=== PATIENT | female | born 1960 | race Asian ===

== ENCOUNTER 2022-05-26 11:15 | Outpatient (RCR) | payer OTHER, MEDICAID, SELFPAY ==
--- NOTE | 2022-04-28 18:09 | PT.OIE ---
Current Diagnoses Muscle weakness (generalized) (04/28/22) Stress incontinence (female) (male) (04/28/22) Visit Care Team Role Provider Type JESUS Pompa Primary Care Provider Non-Staff Specialty: Nursing Address: [facility] [address], [place], [address] Email: Anant Melo MD Attending Provider Non-Staff Family Provider Referring Provider Specialty: RECRUITING AND SELECTION CONSULTANT Address: [facility], [address], [place], [address] Email: Physical Therapy Initial Evaluation PT-OP-A Visit Information Start: 04/24/22 19:02 Freq: Status: Active Protocol: Document 04/28/22 10:30 LRN (Rec: 04/28/22 12:43 LRN [id number]) Out-Patient Physical Therapy Visit Information Visit Information Visit Type Initial Evaluation Visit Start Time 10:30 Visit Stop Time 11:27 Total Visit Minutes 57 Visit Number 1 Evaluation Information Evaluation Date 04/28/22 Precautions Precautions 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 Osteoporosis (-3.3 in spine). PT-OP-B Current Condition Start: 04/24/22 19:02 Freq: Status: Active Protocol: Document 04/28/22 10:30 LRN (Rec: 04/28/22 12:43 LRN [id number]) Current Condition History of Current Condition Onset Date 2019 Current Complaints Urinary leakage with cough, sneeze and jerking of dog. History of Current Condition . Had 4 boys every 1.5 yrs and was carrying low. 34 -38 yrs old during . After retiring, found she was leaking while walking her dog (when he would pull). Was watching ex's on [employer], but her gyno told her she would put her in therapy when she came back from [place]. Pt just returned to the [facility] in Nov. Since she is leaking with coughing and sneezing and with dog jerk, she want to do ex's to prevent leakage when she gets older. States she can hold her urine up to 6 hrs and doesn't leak with an urge . Told she has a skin tag on the external tissues of the anal region. Prior Treatments and Tests Independently did Ut[employer] ex's on PF. Did ex's in gym in [place] for general muscles and for a specific PF. Treatment Goals Patient/Caregiver Goals Pt goals with therapy is to not leak with dog pulling or coughing or sneezing. Prior Functional Status Baseline Function- ADL's Independent Baseline Function- Mobility Independent Baseline Function- Other No leakage with coughing or sneezing. Was not walking dog at the time. Current Functional Impairments (Reported) Functional Limitations- ADL's Retired 2019 at age 58. Worked at [employer]. Walks dogs 2x/day and must change underwear each time afterwards. Dog weighs 50#. Personal Factors Other Personal Factors That May Effect . Osteoporosis (-3.3 in Therapy/Recovery spine). PT-OP-C Subjective Start: 04/24/22 19:02 Freq: Status: Active Protocol: Document 04/28/22 10:30 LRN (Rec: 04/28/22 12:43 LRN [id number]) Patient Questionnaires Pelvic Pain and Urgency/Frequency Patient Symptom Scale Pelvic Pain Score 5 PT-OP-I Pelvic Floor Start: 04/24/22 19:02 Freq: Status: Active Protocol: Document 04/28/22 10:30 LRN (Rec: 04/28/22 12:43 LRN [id number]) Pelvic Floor Assessment Urine Leakage Size Medium Leakage Cause Cough,Exercise,Sneeze Other Leakage Causes Leakage witb exercise when dog pulls. Leaks Per Day 2 Voiding Frequency every 2 hrs Nocturia 1-2 Pads Used In 24 Hours 0 Bowel Bowel Movement Frequency 1-2 [place] Stool Chart Comments 1, 3, 4 Pelvic Clock Pelvic Clock Other Gapping of posterior PF. Prolapse Prolapse Comments Prolapse on valsa maneuber. Contraction Ability Manual Muscle Testing Left 2 Manual Muscle Testing Right 2 Manual Muscle Testing Anterior 3 Manual Muscle Testing Posterior 1 Muscle Endurance (Seconds) 5 Number of Quick Contractions In 10 2 Seconds PT-OP-J Posture/Palpation/Skin Start: 04/24/22 19:02 Freq: Status: Active Protocol: Document 04/28/22 10:30 LRN (Rec: 04/28/22 12:43 LRN [id number]) Posture Evaluation Position Standing Head/C-Spine Posture Forward Head Shoulder Posture (R) Elevated Scapula Posture (L) Neutral,(R) Neutral Pelvis Posture Anteriorly Tilted,(L) PSIS Inferior Comments Posture Comments Slight anterior tilt of pelvis . PT-OP-K Range of Motion Start: 04/24/22 19:02 Freq: Status: Active Protocol: Document 04/28/22 10:30 LRN (Rec: 04/28/22 12:43 LRN [id number]) Lumbar Spine Range of Motion Lumbar Spine Active Degrees Testing Position Standing Flexion 105 Extension 20 Rotation Left 30 Rotation Right 35 Lateral Flexion Left 10 Lateral Flexion Right 10 Comments Trunk Flexion is 105 deg?s with 75 deg?s hip flexion, Trunk extension is 20 deg?s with 15 deg?s hip extension. Hip Goniometric Range of Motion Hip Right Passive Testing Position Supine Internal Rotation 25 External Rotation 65 Left Passive Testing Position Supine Internal Rotation 40 External Rotation 55 PT-OP-M Strength Start: 04/24/22 19:02 Freq: Status: Active Protocol: Document 04/28/22 10:30 LRN (Rec: 04/28/22 12:43 LRN [id number]) Trunk Strength Trunk Manual Muscle Testing Core Stabilization Pt lacks rotational and SB trunk stability as noted during MMT of LE's. Hip Strength Hip Manual Muscle Testing Right Internal Rotation 5 Normal Comments Generally 5/5 except as indicated above Left Extension (S1) 4 Good External Rotation 4+ Good+ PT-OP-Q Treatments Start: 04/24/22 19:02 Freq: Status: Active Protocol: Document 04/28/22 10:30 LRN (Rec: 04/28/22 12:43 LRN [id number]) Self-Care/Home Management Treatment Education Other Education Discussed results of evaluation at length answering pt's questions and concerns, goals, and plan of care (POC). Pt agreeable to goals and POC. Issued, discussed, & reviewed Bladder Diary for pt to complete over the next 7 days. Explained how to fill out diary and counting of urination times. Activities Self-Care/Home Management Activities Issued & reviewed HEP: Yesenia ex's and discussed exercise of Quick Flicks, Long Holds and Aggravators. PT-OP-T Assessment and Plan Start: 04/24/22 19:02 Freq: Status: Active Protocol: Document 04/28/22 10:30 LRN (Rec: 04/28/22 12:43 LRN [id number]) Physical Therapy Assessment Rehab Potential Rehabilitation Potential Excellent Evaluation Complexity Number of Personal Factors/Comorbidities 1-2 Number of Body Systems Impaired 4 or More Clinical Presentation at Evaluation Stable Impairments Impairments ROM,Soft Tissue Mobility, Strength,Transfers Other Impairments Gapping at vaginal opening indicating tightness of tissues. Goals Three Impairment Stress urinary incontinence. Short Term Goal (STG) Improve PF mobility and strength and coordination of contraction to decrease leak with coughing or sneezing to small or no leakage. STG Duration 05/17/22 Data Analytics Specialist Goal (LTG) Pt will improve PF strength with decrease onset of urinary leakage and wetting of underwear (initially leaking each time walking dog) when dog pulls. LTG Duration 06/04/22 Two Impairment Increased urinary frequency ( voiding every 2 hrs). Impairment Nighttime voiding 1-2x. Short Term Goal (STG) Pt will be educated urinary urge deference technique and will be educated in normal voiding times/amounts with improved fluid intake. STG Duration 05/17/22 Alf Goal (LTG) Pt will be able to reduce number of voids during the day to every 3-4 hrs. LTG Duration 06/04/22 One Impairment Lacks appropriate self care HEP Short Term Goal (STG) Pt educated in proper transfers to lessen core abdominal pressure. STG Duration 05/17/22 Data Analytics Specialist Goal (LTG) Pt will be independent in appropriate self care HEP of PF strengthening & hip stretches. Pt will be independent in appropriate core strengthening ex's. LTG Duration 06/04/22 Assessment Summary Assessment Pt is a 61 yo female, with stress urinary incontinence. On internal assessment the pt has a fair to good PF muscle contraction with weakness anteriorly and posteriorly. Externally she demonstrates no visible clit nod and substitutes her PF contraction with gluteal muscles. Pt has bulge with valsa maneuver and tends to hold her breath with transfers . On internally assessment she appeared to have stool present in her rectum and although she reports normal bowel movements, she may have some symptoms of constipation that may need to be addressed in therapy. Further assessment of her bladder diary will help to identify if bowel function needs to be addressed. The pt will benefit from skilled physical therapy to improve hip mobility, improve awareness to improve PF strength, normalize PF ms tone, and improve symmetry of hip mobility and strength, in order to achieve the above stated goals. Physical Therapy Plan Frequency and Duration Frequency of Treatment 1x/Week Plan of Care Start Date 04/28/22 Plan of Care End Date 05/17/22 Therapeutic Interventions Therapeutic Interventions Home Exercise Program,Manual Therapy,Patient/Caregiver Education,Self-Care/Home Management,Soft Tissue Mobilization,Therapeutic Activities,Therapeutic Exercises Next Visit Focus/Plan Next Note Type Treatment Note Next Visit Plan Assess bladder diary and bowel involvement with recommendations as appropriate . Education: PF contractions in isolation of substitute muscles, coordination of proper breaths with ADLs, transfers, body mechanics and exercise. Hip stretch (IR R>L, ER L>R). PF strengthening (anterior & posterior) in isolation of substitute muscles
--- NOTE | 2022-04-28 18:10 | PT.OPPOC ---
Physical, Occupational & Speech Therapy At [facility] Current Diagnoses Muscle weakness (generalized) (04/28/22) Stress incontinence (female) (male) (04/28/22) Visit Care Team Role Provider Type JESUS Pompa Primary Care Provider Non-Staff Specialty: Nursing Address: [address] [place] [address]. [facility], [place], [address] Email: Anant Melo MD Attending Provider Non-Staff Family Provider Referring Provider Specialty: ADULT SCHOOL TEACHER Address: [facility], [address], [place], [address] Email: Plan Of Care PT-OP-T Assessment and Plan Start: 04/24/22 19:02 Freq: Status: Active Protocol: Document 04/28/22 10:30 LRN (Rec: 04/28/22 12:43 LRN [id number]) Physical Therapy Assessment Rehab Potential Rehabilitation Potential Excellent Evaluation Complexity Number of Personal Factors/Comorbidities 1-2 Number of Body Systems Impaired 4 or More Clinical Presentation at Evaluation Stable Impairments Impairments ROM,Soft Tissue Mobility, Strength,Transfers Other Impairments Gapping at vaginal opening indicating tightness of tissues. Goals Three Impairment Stress urinary incontinence. Short Term Goal (STG) Improve PF mobility and strength and coordination of contraction to decrease leak with coughing or sneezing to small or no leakage. STG Duration 05/17/22 Jail Goal (LTG) Pt will improve PF strength with decrease onset of urinary leakage and wetting of underwear (initially leaking each time walking dog) when dog pulls. LTG Duration 06/04/22 Two Impairment Increased urinary frequency ( voiding every 2 hrs). Impairment Nighttime voiding 1-2x. Short Term Goal (STG) Pt will be educated urinary urge deference technique and will be educated in normal voiding times/amounts with improved fluid intake. STG Duration 05/17/22 Hand Former Helper Goal (LTG) Pt will be able to reduce number of voids during the day to every 3-4 hrs. LTG Duration 06/04/22 One Impairment Lacks appropriate self care HEP Short Term Goal (STG) Pt educated in proper transfers to lessen core abdominal pressure. STG Duration 05/17/22 Jail Goal (LTG) Pt will be independent in appropriate self care HEP of PF strengthening & hip stretches. Pt will be independent in appropriate core strengthening ex's. LTG Duration 06/04/22 Assessment Summary Assessment Pt is a 61 yo female, with stress urinary incontinence. On internal assessment the pt has a fair to good PF muscle contraction with weakness anteriorly and posteriorly. Externally she demonstrates no visible clit nod and substitutes her PF contraction with gluteal muscles. Pt has bulge with valsa maneuver and tends to hold her breath with transfers . On internally assessment she appeared to have stool present in her rectum and although she reports normal bowel movements, she may have some symptoms of constipation that may need to be addressed in therapy. Further assessment of her bladder diary will help to identify if bowel function needs to be addressed. The pt will benefit from skilled physical therapy to improve hip mobility, improve awareness to improve PF strength, normalize PF ms tone, and improve symmetry of hip mobility and strength, in order to achieve the above stated goals. Physical Therapy Plan Frequency and Duration Frequency of Treatment 1x/Week Plan of Care Start Date 04/28/22 Plan of Care End Date 05/17/22 Therapeutic Interventions Therapeutic Interventions Home Exercise Program,Manual Therapy,Patient/Caregiver Education,Self-Care/Home Management,Soft Tissue Mobilization,Therapeutic Activities,Therapeutic Exercises Next Visit Focus/Plan Next Note Type Treatment Note Next Visit Plan Assess bladder diary and bowel involvement with recommendations as appropriate . Education: PF contractions in isolation of substitute muscles, coordination of proper breaths with ADLs, transfers, body mechanics and exercise. Hip stretch (IR R>L, ER L>R). PF strengthening (anterior & posterior) in isolation of substitute muscles Plan of Care Dates Plan of Care Start Date 04/28/22 Plan of Care End Date 05/17/22 Electronically Signed by: Tawny Hernandez, PT 04/28/22 0288 If you are in agreement with this Plan of Care, please return a signed and dated copy. I have reviewed this Plan of Care and certify that the skilled therapy services above are required to meet the patient?s needs. Physician Signature Date Printed Name and Credentials Clinical Instructor Signature Printed Name and Credentials
--- NOTE | 2022-05-05 14:13 | PT.OTN ---
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 Osteoporosis (-3.3 in spine). PT-OP-B Current Condition Start: 04/24/22 19:02 Freq: Status: Active Protocol: Document 04/28/22 10:30 LRN (Rec: 04/28/22 12:43 LRN [id number]) Current Condition History of Current Condition Onset Date 2019 Current Complaints Urinary leakage with cough, sneeze and jerking of dog. History of Current Condition . Had 4 boys every 1.5 yrs and was carrying low. 34 -38 yrs old during . After retiring, found she was leaking while walking her dog (when he would pull). Was watching ex's on [employer], but her gyno told her she would put her in therapy when she came back from [place]. Pt just returned to the [facility] in Nov. Since she is leaking with coughing and sneezing and with dog jerk, she want to do ex's to prevent leakage when she gets older. States she can hold her urine up to 6 hrs and doesn't leak with an urge . Told she has a skin tag on the external tissues of the anal region. Prior Treatments and Tests Independently did [employer] ex's on PF. Did ex's in gym in [place] for general muscles and for a specific PF. Treatment Goals Patient/Caregiver Goals Pt goals with therapy is to not leak with dog pulling or coughing or sneezing. Prior Functional Status Baseline Function- ADL's Independent Baseline Function- Mobility Independent Baseline Function- Other No leakage with coughing or sneezing. Was not walking dog at the time. Current Functional Impairments (Reported) Functional Limitations- ADL's Retired 2019 at age 58. Worked at [employer]. Walks dogs 2x/day and must change underwear each time afterwards. Dog weighs 50#. Personal Factors Other Personal Factors That May Effect . Osteoporosis (-3.3 in Therapy/Recovery spine). PT-OP-C Subjective Start: 04/24/22 19:02 Freq: Status: Active Protocol: Document 05/05/22 11:17 LRN (Rec: 05/05/22 14:02 LRN [id number]) OP-PT Subjective Patient Comments Patient Comments Pt has questions regarding use of equipment given to her by Giovani NEIL that work for a friend but not her, many questions regarding voiding frequency, urinary leakage with activities (for her variable), travel to [place] and voiding habits, and food/ drink, factors regarding constipation. PT-OP-I Pelvic Floor Start: 04/24/22 19:02 Freq: Status: Active Protocol: Document 04/28/22 10:30 LRN (Rec: 04/28/22 12:43 LRN [id number]) Pelvic Floor Assessment Urine Leakage Size Medium Leakage Cause Cough,Exercise,Sneeze Other Leakage Causes Leakage witb exercise when dog pulls. Leaks Per Day 2 Voiding Frequency every 2 hrs Nocturia 1-2 Pads Used In 24 Hours 0 Bowel Bowel Movement Frequency 1-2 [place] Stool Chart Comments 1, 3, 4 Pelvic Clock Pelvic Clock Other Gapping of posterior PF. Prolapse Prolapse Comments Prolapse on valsa maneuber. Contraction Ability Manual Muscle Testing Left 2 Manual Muscle Testing Right 2 Manual Muscle Testing Anterior 3 Manual Muscle Testing Posterior 1 Muscle Endurance (Seconds) 5 Number of Quick Contractions In 10 2 Seconds PT-OP-J Posture/Palpation/Skin Start: 04/24/22 19:02 Freq: Status: Active Protocol: Document 04/28/22 10:30 LRN (Rec: 04/28/22 12:43 LRN [id number]) Posture Evaluation Position Standing Head/C-Spine Posture Forward Head Shoulder Posture (R) Elevated Scapula Posture (L) Neutral,(R) Neutral Pelvis Posture Anteriorly Tilted,(L) PSIS Inferior Comments Posture Comments Slight anterior tilt of pelvis . PT-OP-K Range of Motion Start: 04/24/22 19:02 Freq: Status: Active Protocol: Document 04/28/22 10:30 LRN (Rec: 04/28/22 12:43 LRN [id number]) Lumbar Spine Range of Motion Lumbar Spine Active Degrees Testing Position Standing Flexion 105 Extension 20 Rotation Left 30 Rotation Right 35 Lateral Flexion Left 10 Lateral Flexion Right 10 Comments Trunk Flexion is 105 deg?s with 75 deg?s hip flexion, Trunk extension is 20 deg?s with 15 deg?s hip extension. Hip Goniometric Range of Motion Hip Right Passive Testing Position Supine Internal Rotation 25 External Rotation 65 Left Passive Testing Position Supine Internal Rotation 40 External Rotation 55 PT-OP-M Strength Start: 04/24/22 19:02 Freq: Status: Active Protocol: Document 04/28/22 10:30 LRN (Rec: 04/28/22 12:43 LRN [id number]) Trunk Strength Trunk Manual Muscle Testing Core Stabilization Pt lacks rotational and SB trunk stability as noted during MMT of LE's. Hip Strength Hip Manual Muscle Testing Right Internal Rotation 5 Normal Comments Generally 5/5 except as indicated above Left Extension (S1) 4 Good External Rotation 4+ Good+ PT-OP-Q Treatments Start: 04/24/22 19:02 Freq: Status: Active Protocol: Document 05/05/22 11:17 LRN (Rec: 05/05/22 14:02 LRN [id number]) Therapeutic Exercises Supine Exercises Kegels Supine Exercise Name Isolated PF contraction with Relaxation phase focus Reps/Minutes 3' Sitting Exercises Urinary Delay Technique Sitting Exercise Name Urinary Delay technique Reps/Minutes 4' Self-Care/Home Management Treatment Education Other Education Pt Education discussed at length each topic: Normal hydration (61 oz for pt ), most appropriate fluids, timing of fluids. Urinary voiding: Norm as related to: # of voids, frequency, timing/time of day of voiding, amounts. Bowel movements: Foods/fluid effects, # of BM's/day, time of day of BM's. Travel: Urinary voiding, posturing for voiding outside of homes, BM's, constipation. Activities with urinary leakage and possibilities of why leaking. Bladder irritants. Recommended pt increase NON- coffee/alcoholic fluid intake, try urinary delay techinque but not to wait to void, be aware of bladder irritants ingested, avoid drinking/sugar /alcohol 1-2 hrs before bedtime, sit to void and avoid JIC. Activities Self-Care/Home Management Activities Issued & reviewed HEP: Urinary Delay Technique, Bladder Irritants. PT-OP-T Assessment and Plan Start: 02/02/23 19:02 Freq: Status: Active Protocol: Document 05/05/22 11:17 LRN (Rec: 05/05/22 12:10 LRN [id number]) Physical Therapy Assessment Goals Three Impairment Stress urinary incontinence. Short Term Goal (STG) Improve PF mobility and strength and coordination of contraction to decrease leak with coughing or sneezing to small or no leakage. STG Duration 05/17/22 Custodial Goal (LTG) Pt will improve PF strength with decrease onset of urinary leakage and wetting of underwear (initially leaking each time walking dog) when dog pulls. LTG Duration 06/04/22 Two Impairment Increased urinary frequency ( voiding every 2 hrs). Impairment Nighttime voiding 1-2x. Short Term Goal (STG) Pt will be educated urinary urge deference technique and will be educated in normal voiding times/amounts with improved fluid intake. STG Duration 05/17/22 Tender Labor Goal (LTG) Pt will be able to reduce number of voids during the day to every 3-4 hrs. LTG Duration 06/04/22 One Impairment Lacks appropriate self care HEP Short Term Goal (STG) Pt educated in proper transfers to lessen core abdominal pressure. STG Duration 05/17/22 Tender Labor Goal (LTG) Pt will be independent in appropriate self care HEP of PF strengthening & hip stretches. Pt will be independent in appropriate core strengthening ex's. LTG Duration 06/04/22 Assessment Summary Assessment Found pt has increased voiding due to bladder irritants, decreased NON-coffee/alcoholic fluid intake, JIC-ing, and drinking too close to bedtime. Pt demonstrates less use of substitute muscles with Kegel when focusing on relaxation of PF ms after doing a Kegel. Physical Therapy Plan Frequency and Duration Frequency of Treatment 1x/Week Plan of Care Start Date 04/28/22 Plan of Care End Date 05/17/22 Next Visit Focus/Plan Next Note Type Treatment Note Next Visit Plan EMG Biofeedback assessment. Education: cordination of proper breaths with ADLs, transfers, body mechanics and exercise. Hip stretch (IR R>L, ER L>R). PF strengthening (anterior & posterior) in isolation of substitute muscles with awareness of PF relaxation.
--- NOTE | 2022-05-13 16:40 | PT.OTN ---
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 Osteoporosis (-3.3 in spine). PT-OP-B Current Condition Start: 04/24/22 19:02 Freq: Status: Active Protocol: Document 04/28/22 10:30 LRN (Rec: 04/28/22 12:43 LRN [id number]) Current Condition History of Current Condition Onset Date 2019 Current Complaints Urinary leakage with cough, sneeze and jerking of dog. History of Current Condition . Had 4 boys every 1.5 yrs and was carrying low. 34 -38 yrs old during . After retiring, found she was leaking while walking her dog (when he would pull). Was watching ex's on U[employer], but her gyno told her she would put her in therapy when she came back from [place]. Pt just returned to the [facility] in Nov. Since she is leaking with coughing and sneezing and with dog jerk, she want to do ex's to prevent leakage when she gets older. States she can hold her urine up to 6 hrs and doesn't leak with an urge . Told she has a skin tag on the external tissues of the anal region. Prior Treatments and Tests Independently did Utube ex's on PF. Did ex's in gym in [place] for general muscles and for a specific PF. Treatment Goals Patient/Caregiver Goals Pt goals with therapy is to not leak with dog pulling or coughing or sneezing. Prior Functional Status Baseline Function- ADL's Independent Baseline Function- Mobility Independent Baseline Function- Other No leakage with coughing or sneezing. Was not walking dog at the time. Current Functional Impairments (Reported) Functional Limitations- ADL's Retired 2019 at age 58. Worked at [employer]. Walks dogs 2x/day and must change underwear each time afterwards. Dog weighs 50#. Personal Factors Other Personal Factors That May Effect . Osteoporosis (-3.3 in Therapy/Recovery spine). PT-OP-C Subjective Start: 04/24/22 19:02 Freq: Status: Active Protocol: Document 05/13/22 14:33 LRN (Rec: 05/13/22 15:19 LRN [id number]) OP-PT Subjective Patient Comments Patient Comments Stopped drinking coffee and freq decreased a lot and now going 7-8 times a day. Tried to retrain bladder and finds it is working. Not leaking as much when walking dog. PT-OP-I Pelvic Floor Start: 04/24/22 19:02 Freq: Status: Active Protocol: Document 05/13/22 14:33 LRN (Rec: 05/13/22 16:39 LRN [id number]) Pelvic Floor Assessment SEMG (uV) Baseline 2.2 Quick Contraction 15 10 Second Contraction 10.1 Recruitment Pattern Good Relaxation Fair Holding Poor/Slow Stability of Hold Poor/Slow SEMG Stability of Rest Good Comments Pelvic Floor Comments Pt values reported are with 20 contractions. PT-OP-J Posture/Palpation/Skin Start: 04/24/22 19:02 Freq: Status: Active Protocol: Document 04/28/22 10:30 LRN (Rec: 04/28/22 12:43 LRN [id number]) Posture Evaluation Position Standing Head/C-Spine Posture Forward Head Shoulder Posture (R) Elevated Scapula Posture (L) Neutral,(R) Neutral Pelvis Posture Anteriorly Tilted,(L) PSIS Inferior Comments Posture Comments Slight anterior tilt of pelvis . PT-OP-K Range of Motion Start: 04/24/22 19:02 Freq: Status: Active Protocol: Document 04/28/22 10:30 LRN (Rec: 04/28/22 12:43 LRN [id number]) Lumbar Spine Range of Motion Lumbar Spine Active Degrees Testing Position Standing Flexion 105 Extension 20 Rotation Left 30 Rotation Right 35 Lateral Flexion Left 10 Lateral Flexion Right 10 Comments Trunk Flexion is 105 deg?s with 75 deg?s hip flexion, Trunk extension is 20 deg?s with 15 deg?s hip extension. Hip Goniometric Range of Motion Hip Right Passive Testing Position Supine Internal Rotation 25 External Rotation 65 Left Passive Testing Position Supine Internal Rotation 40 External Rotation 55 PT-OP-M Strength Start: 04/24/22 19:02 Freq: Status: Active Protocol: Document 04/28/22 10:30 LRN (Rec: 04/28/22 12:43 LRN [id number]) Trunk Strength Trunk Manual Muscle Testing Core Stabilization Pt lacks rotational and SB trunk stability as noted during MMT of LE's. Hip Strength Hip Manual Muscle Testing Right Internal Rotation 5 Normal Comments Generally 5/5 except as indicated above Left Extension (S1) 4 Good External Rotation 4+ Good+ PT-OP-Q Treatments Start: 04/24/22 19:02 Freq: Status: Active Protocol: Document 05/13/22 14:33 LRN (Rec: 05/13/22 15:19 LRN [id number]) Neuro Re-Education Treatment Other Activities EMG neuro-aniceto Details EMG biofeedback training for reduction of PF tone Reps/Duration 27' Comments BAseline is 2.2uV's Quick Contractions avg work is 15.2 uV's. Long Hold: Avg Work is uV's, Avg Rest is uV's, Hold time is 1-2 secs. Self-Care/Home Management Treatment Education Other Education Reviewed Bladder dairy and had extensive discussion of fluid intake/output, urinary frequency - norms and training to extend times btn voids and using Urinary Delay technique to delay by 10-15' at a time to extend times between voids. Pt education in Bladder retraining, discussed modifications of fluids for travel travel to [facility] and hydrating concepts. Activities Self-Care/Home Management Activities I/S pt for HEP: PF contraction in isolation of substitute ms and breathing with exercise (no breath holding), and to bladder retrain. PT-OP-T Assessment and Plan Start: 04/24/22 19:02 Freq: Status: Active Protocol: Document 05/13/22 14:33 LRN (Rec: 05/13/22 15:19 LRN [id number]) Physical Therapy Assessment Goals Three Impairment Stress urinary incontinence. Short Term Goal (STG) Improve PF mobility and strength and coordination of contraction to decrease leak with coughing or sneezing to small or no leakage. STG Duration 05/17/22 [facility] Goal (LTG) Pt will improve PF strength with decrease onset of urinary leakage and wetting of underwear (initially leaking each time walking dog) when dog pulls. LTG Duration 06/04/22 Two Impairment Increased urinary frequency ( voiding every 2 hrs). Impairment Nighttime voiding 1-2x. Short Term Goal (STG) Pt will be educated urinary urge deference technique and will be educated in normal voiding times/amounts with improved fluid intake. STG Duration 05/17/22 (05/13/22: MET GOAL ) [facility] Goal (LTG) Pt will be able to reduce number of voids during the day to every 3-4 hrs. 05/13/22: Voids reduced to mostly every 2 hours. LTG Duration 06/04/22 progressing 05/13/22 . One Impairment Lacks appropriate self care HEP Short Term Goal (STG) Pt educated in proper transfers to lessen core abdominal pressure. STG Duration 05/17/22 [facility] Goal (LTG) Pt will be independent in appropriate self care HEP of PF strengthening & hip stretches. Pt will be independent in appropriate core strengthening ex's. LTG Duration 06/04/22 Assessment Summary Assessment 61 yo female, with stress urinary incontinence. Pt tends to use substitute ms and breathholding to get a PF contraction. Per EMG Biofeedback the pt has a mildly increased resting tone of ~2 uV's. Her contraction hold is poor with holding for 1-2 secs and her Quick contraction strength decreases after the 1st contraction and again after the 4th contraction, indicating weakness. Physical Therapy Plan Frequency and Duration Frequency of Treatment 1x/Week Plan of Care Start Date 04/28/22 Plan of Care End Date 05/17/22 Next Visit Focus/Plan Next Note Type Treatment Note Next Visit Plan Education: coordination of proper breaths with ADLs, transfers, body mechanics and exercise. Hip stretch (IR R>L, ER L>R). EMG: PF strengthening ( anterior & posterior) in isolation of substitute muscles with awareness of PF relaxation.
--- NOTE | 2022-05-19 12:16 | PT.OTN ---
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 Osteoporosis (-3.3 in spine). PT-OP-B Current Condition Start: 04/24/22 19:02 Freq: Status: Active Protocol: Document 04/28/22 10:30 LRN (Rec: 04/28/22 12:43 LRN [id number]) Current Condition History of Current Condition Onset Date 2019 Current Complaints Urinary leakage with cough, sneeze and jerking of dog. History of Current Condition . Had 4 boys every 1.5 yrs and was carrying low. 34 -38 yrs old during . After retiring, found she was leaking while walking her dog (when he would pull). Was watching ex's on UTube, but her gyno told her she would put her in therapy when she came back from [place]. Pt just returned to the [facility] in Nov. Since she is leaking with coughing and sneezing and with dog jerk, she want to do ex's to prevent leakage when she gets older. States she can hold her urine up to 6 hrs and doesn't leak with an urge . Told she has a skin tag on the external tissues of the anal region. Prior Treatments and Tests Independently did Utube ex's on PF. Did ex's in gym in [place] for general muscles and for a specific PF. Treatment Goals Patient/Caregiver Goals Pt goals with therapy is to not leak with dog pulling or coughing or sneezing. Prior Functional Status Baseline Function- ADL's Independent Baseline Function- Mobility Independent Baseline Function- Other No leakage with coughing or sneezing. Was not walking dog at the time. Current Functional Impairments (Reported) Functional Limitations- ADL's Retired 2019 at age 58. Worked at [employer]. Walks dogs 2x/day and must change underwear each time afterwards. Dog weighs 50#. Personal Factors Other Personal Factors That May Effect . Osteoporosis (-3.3 in Therapy/Recovery spine). PT-OP-C Subjective Start: 04/24/22 19:02 Freq: Status: Active Protocol: Document 05/19/22 11:17 LRN (Rec: 05/19/22 12:15 LRN [id number]) OP-PT Subjective Patient Comments Patient Comments Not leaking as much walking dog because she moved the leash attachment of the dog to the front of collar and not behind. PT-OP-I Pelvic Floor Start: 04/24/22 19:02 Freq: Status: Active Protocol: Document 05/13/22 14:33 LRN (Rec: 05/13/22 16:39 LRN [id number]) Pelvic Floor Assessment SEMG (uV) Baseline 2.2 Quick Contraction 15 10 Second Contraction 10.1 Recruitment Pattern Good Relaxation Fair Holding Poor/Slow Stability of Hold Poor/Slow SEMG Stability of Rest Good Comments Pelvic Floor Comments Pt values reported are with 20 contractions. PT-OP-J Posture/Palpation/Skin Start: 04/24/22 19:02 Freq: Status: Active Protocol: Document 04/28/22 10:30 LRN (Rec: 04/28/22 12:43 LRN [id number]) Posture Evaluation Position Standing Head/C-Spine Posture Forward Head Shoulder Posture (R) Elevated Scapula Posture (L) Neutral,(R) Neutral Pelvis Posture Anteriorly Tilted,(L) PSIS Inferior Comments Posture Comments Slight anterior tilt of pelvis . PT-OP-K Range of Motion Start: 04/24/22 19:02 Freq: Status: Active Protocol: Document 04/28/22 10:30 LRN (Rec: 04/28/22 12:43 LRN [id number]) Lumbar Spine Range of Motion Lumbar Spine Active Degrees Testing Position Standing Flexion 105 Extension 20 Rotation Left 30 Rotation Right 35 Lateral Flexion Left 10 Lateral Flexion Right 10 Comments Trunk Flexion is 105 deg?s with 75 deg?s hip flexion, Trunk extension is 20 deg?s with 15 deg?s hip extension. Hip Goniometric Range of Motion Hip Right Passive Testing Position Supine Internal Rotation 25 External Rotation 65 Left Passive Testing Position Supine Internal Rotation 40 External Rotation 55 PT-OP-M Strength Start: 04/24/22 19:02 Freq: Status: Active Protocol: Document 04/28/22 10:30 LRN (Rec: 04/28/22 12:43 LRN [id number]) Trunk Strength Trunk Manual Muscle Testing Core Stabilization Pt lacks rotational and SB trunk stability as noted during MMT of LE's. Hip Strength Hip Manual Muscle Testing Right Internal Rotation 5 Normal Comments Generally 5/5 except as indicated above Left Extension (S1) 4 Good External Rotation 4+ Good+ PT-OP-Q Treatments Start: 04/24/22 19:02 Freq: Status: Active Protocol: Document 05/19/22 11:17 LRN (Rec: 05/19/22 12:15 LRN [id number]) Therapeutic Exercises Supine Exercises Kegels Supine Exercise Name Isolated PF contraction with Relaxation phase focus Reps/Minutes 10' Self-Care/Home Management Treatment Education Other Education Reviewed Bladder dairy and had extensive discussion of fluid intake/output, urinary frequency, leakage with dog walks. Recommendation Activities Self-Care/Home Management Activities Issued & reviewed HEP: Deep breathing & LE Roll in/out w/ PF c contraction. PT-OP-T Assessment and Plan Start: 04/24/22 19:02 Freq: Status: Active Protocol: Document 05/19/22 11:17 LRN (Rec: 05/19/22 12:15 LRN [id number]) Physical Therapy Assessment Goals Three Impairment Stress urinary incontinence. Short Term Goal (STG) Improve PF mobility and strength and coordination of contraction to decrease leak with coughing or sneezing to small or no leakage. 05/19/22: Leakage with cough x1 in past week. STG Duration 05/17/22 [employer] Protection Specialist Goal (LTG) Pt will improve PF strength with decrease onset of urinary leakage and wetting of underwear (initially leaking each time walking dog) when dog pulls. 05/19/22: Reduced leakage with walking dog to ~1x/day. LTG Duration 06/04/22 (05/19/22: MET GOAL ) Two Impairment Increased urinary frequency ( voiding every 2 hrs). Impairment Nighttime voiding 1-2x. Short Term Goal (STG) Pt will be educated urinary urge deference technique and will be educated in normal voiding times/amounts with improved fluid intake. STG Duration 05/17/22 (05/13/22: MET GOAL ) Care Home Goal (LTG) Pt will be able to reduce number of voids during the day to every 3-4 hrs. 05/13/22: Voids reduced to mostly every 2 hours. 05/19/22: Reduced voids to every 1-3 hours LTG Duration 06/04/22 progressing 05/19/22 . One Impairment Lacks appropriate self care HEP Short Term Goal (STG) Pt educated in proper transfers to lessen core abdominal pressure. STG Duration 05/17/22 Care Home Goal (LTG) Pt will be independent in appropriate self care HEP of PF strengthening & hip stretches. Pt will be independent in appropriate core strengthening ex's. LTG Duration 06/04/22 progressing 05/19/22. Assessment Summary Assessment 61 yo female, with stress urinary incontinence. Pt appears to have a good understanding of deep breathing with good rib excursion but needed phys & v cuing. She performed deep breathing better after training. She is having a hard time coordinating holding a PF contraction with breathing and exercise. Physical Therapy Plan Frequency and Duration Frequency of Treatment 1x/Week Plan of Care Start Date 04/28/22 Plan of Care End Date 05/17/22 Next Visit Focus/Plan Next Note Type Discharge Summary Next Visit Plan DC next visit due to pt leaving for [facility]. *Education: coordination of proper breaths with ADLs, transfers, body mechanics and exercise. HEP: Hip stretch (IR R>L, ER L >R). EMG: awareness training for f PF relaxation and contraction . Review previously issued HEP if time permits.
--- NOTE | 2022-05-26 12:38 | PT.OTN ---
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 Osteoporosis (-3.3 in spine). PT-OP-B Current Condition Start: 04/24/22 19:02 Freq: Status: Active Protocol: Document 04/28/22 10:30 LRN (Rec: 04/28/22 12:43 LRN [id number]) Current Condition History of Current Condition Onset Date 2019 Current Complaints Urinary leakage with cough, sneeze and jerking of dog. History of Current Condition . Had 4 boys every 1.5 yrs and was carrying low. 34 -38 yrs old during . After retiring, found she was leaking while walking her dog (when he would pull). Was watching ex's on UTube, but her gyno told her she would put her in therapy when she came back from [place]. Pt just returned to the [facility] in Nov. Since she is leaking with coughing and sneezing and with dog jerk, she want to do ex's to prevent leakage when she gets older. States she can hold her urine up to 6 hrs and doesn't leak with an urge . Told she has a skin tag on the external tissues of the anal region. Prior Treatments and Tests Independently did Utube ex's on PF. Did ex's in gym in [place] for general muscles and for a specific PF. Treatment Goals Patient/Caregiver Goals Pt goals with therapy is to not leak with dog pulling or coughing or sneezing. Prior Functional Status Baseline Function- ADL's Independent Baseline Function- Mobility Independent Baseline Function- Other No leakage with coughing or sneezing. Was not walking dog at the time. Current Functional Impairments (Reported) Functional Limitations- ADL's Retired 2019 at age 58. Worked at [employer]. Walks dogs 2x/day and must change underwear each time afterwards. Dog weighs 50#. Personal Factors Other Personal Factors That May Effect . Osteoporosis (-3.3 in Therapy/Recovery spine). PT-OP-C Subjective Start: 04/24/22 19:02 Freq: Status: Active Protocol: Document 05/26/22 11:25 LRN (Rec: 05/26/22 12:38 LRN [id number]) OP-PT Subjective Patient Comments Patient Comments Leaving on the and will return in December. States she is leaking less often, still when walking dog, but smaller amount and when ignoring her urge to urinate. PT-OP-I Pelvic Floor Start: 04/24/22 19:02 Freq: Status: Active Protocol: Document 05/13/22 14:33 LRN (Rec: 05/13/22 16:39 LRN [id number]) Pelvic Floor Assessment SEMG (uV) Baseline 2.2 Quick Contraction 15 10 Second Contraction 10.1 Recruitment Pattern Good Relaxation Fair Holding Poor/Slow Stability of Hold Poor/Slow SEMG Stability of Rest Good Comments Pelvic Floor Comments Pt values reported are with 20 contractions. PT-OP-J Posture/Palpation/Skin Start: 04/24/22 19:02 Freq: Status: Active Protocol: Document 04/28/22 10:30 LRN (Rec: 04/28/22 12:43 LRN [id number]) Posture Evaluation Position Standing Head/C-Spine Posture Forward Head Shoulder Posture (R) Elevated Scapula Posture (L) Neutral,(R) Neutral Pelvis Posture Anteriorly Tilted,(L) PSIS Inferior Comments Posture Comments Slight anterior tilt of pelvis . PT-OP-K Range of Motion Start: 04/24/22 19:02 Freq: Status: Active Protocol: Document 04/28/22 10:30 LRN (Rec: 04/28/22 12:43 LRN [id number]) Lumbar Spine Range of Motion Lumbar Spine Active Degrees Testing Position Standing Flexion 105 Extension 20 Rotation Left 30 Rotation Right 35 Lateral Flexion Left 10 Lateral Flexion Right 10 Comments Trunk Flexion is 105 deg?s with 75 deg?s hip flexion, Trunk extension is 20 deg?s with 15 deg?s hip extension. Hip Goniometric Range of Motion Hip Right Passive Testing Position Supine Internal Rotation 25 External Rotation 65 Left Passive Testing Position Supine Internal Rotation 40 External Rotation 55 PT-OP-M Strength Start: 04/24/22 19:02 Freq: Status: Active Protocol: Document 04/28/22 10:30 LRN (Rec: 04/28/22 12:43 LRN [id number]) Trunk Strength Trunk Manual Muscle Testing Core Stabilization Pt lacks rotational and SB trunk stability as noted during MMT of LE's. Hip Strength Hip Manual Muscle Testing Right Internal Rotation 5 Normal Comments Generally 5/5 except as indicated above Left Extension (S1) 4 Good External Rotation 4+ Good+ PT-OP-Q Treatments Start: 04/24/22 19:02 Freq: Status: Active Protocol: Document 05/26/22 11:25 LRN (Rec: 05/26/22 12:38 LRN [id number]) Therapeutic Exercises Supine Exercises Hip ER stretch Supine Exercise Name L>R, Fig 4 stretch - w/neural glides (ankle PF-DF/EV/toe mvmts) Side left Reps/Minutes 2x Piriformis stretch Supine Exercise Name R>L, Piriformis stretch - w/ neural glides (ankle PF-DF/ circles/toe mvmts) Side bilateral Reps/Minutes 3x Therapeutic Activity Therapeutic Activity Transfer training coordination w/PF/DB Name Transfer coordinating PF tightening & Breathing. Reps/Minutes 15' Comments Pt needing much training for best transfers sit<>supine. She seems to have difficulty coordinating transfers with breath & PF contractions, but intellectually I believe she understands what to do. Neuro Re-Education Treatment Other Activities EMG neuro-aniceto Details PF awareness training w/EStim Reps/Duration 15' Comments Intensity 19 50 pps 10:20 on:off. 3 breaths on: 6 breaths off. -Extra time needed for determining max tolerated intensity and positioning. Self-Care/Home Management Treatment Education Other Education Reviewed Bladder Diary and discussed fluids pt drinking that are bladder irritants. Discussed modifications to her drinking water to minimize bladder irritation. Pt educated in proper transfers to lessen core abdominal pressure. Activities Self-Care/Home Management Activities Issued & Reviewed HEP: R hip IR and L hip ER stretches. PT-OP-T Assessment and Plan Start: 04/24/22 19:02 Freq: Status: Active Protocol: Document 05/26/22 11:25 LRN (Rec: 05/26/22 12:38 LRN [id number]) Physical Therapy Assessment Goals Three Impairment Stress urinary incontinence. Short Term Goal (STG) Improve PF mobility and strength and coordination of contraction to decrease leak with coughing or sneezing to small or no leakage. 05/19/22: Leakage with cough x1 in past week. 05/26/22: Sometimes leaks with cough or sneeze. STG Duration 05/17/22 (05/26/22: Improved, not met goal, early DC) Manufacturing Engineer Supervisor Goal (LTG) Pt will improve PF strength with decrease onset of urinary leakage and wetting of underwear (initially leaking each time walking dog) when dog pulls. 05/19/22: Reduced leakage with walking dog to ~1x/day. LTG Duration 06/04/22 (05/19/22: MET GOAL ) Two Impairment Increased urinary frequency ( voiding every 2 hrs). Impairment Nighttime voiding 1-2x. Short Term Goal (STG) Pt will be educated urinary urge deference technique and will be educated in normal voiding times/amounts with improved fluid intake. STG Duration 05/17/22 (05/13/22: MET GOAL ) Custodial Goal (LTG) Pt will be able to reduce number of voids during the day to every 3-4 hrs. 05/13/22: Voids reduced to mostly every 2 hours. 05/19/22: Reduced voids to every 1-3 hours LTG Duration 06/04/22 (05/26/22: Improved , not met goal, early DC) One Impairment Lacks appropriate self care HEP Short Term Goal (STG) Pt educated in proper transfers to lessen core abdominal pressure. STG Duration 05/17/22 (05/26/22: MET GOAL) Custodial Goal (LTG) Pt will be independent in appropriate self care HEP of PF strengthening & hip stretches. Pt will be independent in appropriate core strengthening ex's. LTG Duration 06/04/22 (05/26/22: progressed, not met goal, early DC) Assessment Summary Assessment Pt is a 61 yo female, who has been seen for 5 physical therapy visits for stress urinary incontinence. She is experiencing less urinary leakage and has increased her time between voids. She has some urinary leakge with walking her dog, although less in volume. She leaks when she waits too long to void and is working on improving her PF strength. Today, she improved greatly in her awareness of performing a PF contraction and was advanced in her HEP of hip stretches and proper transfers/movement while coordinating a PF contraction and breathwork. The pt is being discharged a little early from physical therapy due to her leaving for [place] next week; therefore she was not able to achieve all her goals. If the pt continues to work on her HEP I feel she will be successful in improving her PF strength and further decreasing her onset of urinary stress incontinence. If she is not able to become continent on her return, further PF therapy may be helpful in improving her level of continence. Physical Therapy Plan Discharge Physical Therapy Discharge Reasons No Longer Attending PT Discharge Comments Pt is moving back to [facility] for winter; therefore pt is needing discharge to her home program. Thank you for your referral.
--- NOTE | 2022-05-26 18:47 | PT.OTN ---
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 PT-OP-B Current Condition Start: 04/24/22 19:02 Freq: Status: Active Protocol: Document 04/28/22 10:30 LRN (Rec: 04/28/22 12:43 LRN [id number]) Current Condition History of Current Condition Onset Date 2019 Current Complaints Urinary leakage with cough, sneeze and jerking of dog. History of Current Condition . Had 4 boys every 1.5 yrs and was carrying low. 34 -38 yrs old during . After retiring, found she was leaking while walking her dog (when he would pull). Was watching ex's on UTube, but her gyno told her she would put her in therapy when she came back from [place]. Pt just returned to the [facility] in Nov. Since she is leaking with coughing and sneezing and with dog jerk, she want to do ex's to prevent leakage when she gets older. States she can hold her urine up to 6 hrs and doesn't leak with an urge . Told she has a skin tag on the external tissues of the anal region. Prior Treatments and Tests Independently did Utube ex's on PF. Did ex's in gym in [place] for general muscles and for a specific PF. Treatment Goals Patient/Caregiver Goals Pt goals with therapy is to not leak with dog pulling or coughing or sneezing. Prior Functional Status Baseline Function- ADL's Independent Baseline Function- Mobility Independent Baseline Function- Other No leakage with coughing or sneezing. Was not walking dog at the time. Current Functional Impairments (Reported) Functional Limitations- ADL's Retired 2019 at age 58. Worked at [employer]. Walks dogs 2x/day and must change underwear each time afterwards. Dog weighs 50#. Personal Factors Other Personal Factors That May Effect . Osteoporosis (-3.3 in Therapy/Recovery spine). PT-OP-C Subjective Start: 04/24/22 19:02 Freq: Status: Active Protocol: Document 05/26/22 11:25 LRN (Rec: 05/26/22 12:38 LRN [id number]) OP-PT Subjective Patient Comments Patient Comments Leaving on the and will return in December. States she is leaking less often, still when walking dog, but smaller amount and when ignoring her urge to urinate. States she has much more awareness of a PF contraction after ESTim. PT-OP-I Pelvic Floor Start: 04/24/22 19:02 Freq: Status: Active Protocol: Document 05/13/22 14:33 LRN (Rec: 05/13/22 16:39 LRN [id number]) Pelvic Floor Assessment SEMG (uV) Baseline 2.2 Quick Contraction 15 10 Second Contraction 10.1 Recruitment Pattern Good Relaxation Fair Holding Poor/Slow Stability of Hold Poor/Slow SEMG Stability of Rest Good Comments Pelvic Floor Comments Pt values reported are with 20 contractions. PT-OP-J Posture/Palpation/Skin Start: 04/24/22 19:02 Freq: Status: Active Protocol: Document 04/28/22 10:30 LRN (Rec: 04/28/22 12:43 LRN [id number]) Posture Evaluation Position Standing Head/C-Spine Posture Forward Head Shoulder Posture (R) Elevated Scapula Posture (L) Neutral,(R) Neutral Pelvis Posture Anteriorly Tilted,(L) PSIS Inferior Comments Posture Comments Slight anterior tilt of pelvis . PT-OP-K Range of Motion Start: 04/24/22 19:02 Freq: Status: Active Protocol: Document 04/28/22 10:30 LRN (Rec: 04/28/22 12:43 LRN [id number]) Lumbar Spine Range of Motion Lumbar Spine Active Degrees Testing Position Standing Flexion 105 Extension 20 Rotation Left 30 Rotation Right 35 Lateral Flexion Left 10 Lateral Flexion Right 10 Comments Trunk Flexion is 105 deg?s with 75 deg?s hip flexion, Trunk extension is 20 deg?s with 15 deg?s hip extension. Hip Goniometric Range of Motion Hip Right Passive Testing Position Supine Internal Rotation 25 External Rotation 65 Left Passive Testing Position Supine Internal Rotation 40 External Rotation 55 PT-OP-M Strength Start: 04/24/22 19:02 Freq: Status: Active Protocol: Document 04/28/22 10:30 LRN (Rec: 04/28/22 12:43 LRN [id number]) Trunk Strength Trunk Manual Muscle Testing Core Stabilization Pt lacks rotational and SB trunk stability as noted during MMT of LE's. Hip Strength Hip Manual Muscle Testing Right Internal Rotation 5 Normal Comments Generally 5/5 except as indicated above Left Extension (S1) 4 Good External Rotation 4+ Good+ PT-OP-Q Treatments Start: 04/24/22 19:02 Freq: Status: Active Protocol: Document 05/26/22 11:25 LRN (Rec: 05/26/22 12:38 LRN [id number]) Therapeutic Exercises Supine Exercises Hip ER stretch Supine Exercise Name L>R, Fig 4 stretch - w/neural glides (ankle PF-DF/EV/toe mvmts) Side left Reps/Minutes 2x Piriformis stretch Supine Exercise Name R>L, Piriformis stretch - w/ neural glides (ankle PF-DF/ circles/toe mvmts) Side bilateral Reps/Minutes 3x Therapeutic Activity Therapeutic Activity Transfer training coordination w/PF/DB Name Transfer coordinating PF tightening & Breathing. Reps/Minutes 15' Comments Pt needing much training for best transfers sit<>supine. She seems to have difficulty coordinating transfers with breath & PF contractions, but intellectually I believe she understands what to do. Neuro Re-Education Treatment Other Activities EMG neuro-aniceto Details PF awareness training w/EStim Reps/Duration 15' Comments Intensity 19 50 pps 10:20 on:off. 3 breaths on: 6 breaths off. -Extra time needed for determining max tolerated intensity and positioning. Self-Care/Home Management Treatment Education Other Education Reviewed Bladder Diary and discussed fluids pt drinking that are bladder irritants. Discussed modifications to her drinking water to minimize bladder irritation. Pt educated in proper transfers to lessen core abdominal pressure. Activities Self-Care/Home Management Activities Issued & Reviewed HEP: R hip IR and L hip ER stretches. PT-OP-T Assessment and Plan Start: 04/24/22 19:02 Freq: Status: Active Protocol: Document 05/26/22 11:25 LRN (Rec: 05/26/22 12:38 LRN [id number]) Physical Therapy Assessment Goals Three Impairment Stress urinary incontinence. Short Term Goal (STG) Improve PF mobility and strength and coordination of contraction to decrease leak with coughing or sneezing to small or no leakage. 05/19/22: Leakage with cough x1 in past week. 05/26/22: Sometimes leaks with cough or sneeze. STG Duration 05/17/22 (05/26/22: Improved, not met goal, early DC) Facing Baster Goal (LTG) Pt will improve PF strength with decrease onset of urinary leakage and wetting of underwear (initially leaking each time walking dog) when dog pulls. 05/19/22: Reduced leakage with walking dog to ~1x/day. LTG Duration 06/04/22 (05/19/22: MET GOAL ) Two Impairment Increased urinary frequency ( voiding every 2 hrs). Impairment Nighttime voiding 1-2x. Short Term Goal (STG) Pt will be educated urinary urge deference technique and will be educated in normal voiding times/amounts with improved fluid intake. STG Duration 05/17/22 (05/13/22: MET GOAL ) Mcc Goal (LTG) Pt will be able to reduce number of voids during the day to every 3-4 hrs. 05/13/22: Voids reduced to mostly every 2 hours. 05/19/22: Reduced voids to every 1-3 hours LTG Duration 06/04/22 (05/26/22: Improved , not met goal, early DC) One Impairment Lacks appropriate self care HEP Short Term Goal (STG) Pt educated in proper transfers to lessen core abdominal pressure. STG Duration 05/17/22 (05/26/22: MET GOAL) Mcc Goal (LTG) Pt will be independent in appropriate self care HEP of PF strengthening & hip stretches. Pt will be independent in appropriate core strengthening ex's. LTG Duration 06/04/22 (05/26/22: progressed, not met goal, early DC) Assessment Summary Assessment Pt is a 61 yo female, who has been seen for 5 physical therapy visits for stress urinary incontinence. She is experiencing less urinary leakage and has increased her time between voids. She has some urinary leakge with walking her dog, although less in volume. She leaks when she waits too long to void and is working on improving her PF strength. Today, she improved greatly in her awareness of performing a PF contraction and was advanced in her HEP of hip stretches and proper transfers/movement while coordinating a PF contraction and breathwork. The pt is being discharged a little early from physical therapy due to her leaving for [place] next week; therefore she was not able to achieve all her goals. If the pt continues to work on her HEP I feel she will be successful in improving her PF strength and further decreasing her onset of urinary stress incontinence. If she is not able to become continent on her return, further PF therapy may be helpful in improving her level of continence. Physical Therapy Plan Discharge Physical Therapy Discharge Reasons No Longer Attending PT Discharge Comments Pt is moving back to [facility] for winter; therefore pt is needing discharge to her home program. Thank you for your referral.
== END 2022-05-29 10:15 | disposition home or self-care (01) ==
LOC: PHYS 11:15
PROVIDERS: Family Provider Obstetrics & Gynecology; PCP Nurse Practitioner Family; Referring Provider Obstetrics & Gynecology; Visit Provider Obstetrics & Gynecology
DX: N39.3 Stress incontinence (female) (male) (principal); M62.81 Muscle weakness (generalized)
CPT/HCPCS: 97110; 97112; 97161; 97530; 97535